=== PATIENT | male | born 1945 | race Two or more races ===

== ENCOUNTER 2021-02-08 07:13 | Outpatient (CLI) | payer OTHER | END 2021-02-08 07:18 | disposition home or self-care (01) | LOC: RX STUDY 07:13 | PROVIDERS: ATTEND Colon & Rectal Surgery | DX: K57.20 Diverticulitis of large intestine with perforation and abscess without bleeding (principal) ==

== ENCOUNTER 2021-06-13 10:45 | Inpatient (IN) | payer OTHER ==
[~2021-06-13] VITALS: Ht 170.2 cm; Wt 77.6 kg
[2021-06-13] MEDS ORDERED: AVALIDE 300-121 EACH PO (15:35)
[2021-06-13] MEDS ORDERED: CARVEDILOL25 MG (15:35)
[2021-06-13] MEDS ORDERED: LIPITOR20 MG PO (15:35)
[2021-06-13] MEDS ORDERED: FENOFIBRATE150 MG PO (15:36)
[2021-06-13] MEDS ORDERED: TRADJENTA5 MG PO (15:36)
[2021-06-13] MEDS ORDERED: NORVASC10 MG PO (15:37)
[2021-06-13] MEDS ORDERED: LISINOPRIL5 MG PO (15:37)
[2021-06-13] MEDS ORDERED: RESTORIL15 MG PO (15:38)
[2021-06-13] MEDS ORDERED: CLONAZEPAM0.5 MG PO (15:38)
[2021-06-15] MEDS ORDERED: DICLOFENAC SOD100 GM (09:55)
[2021-06-15] MEDS ORDERED: GLIPIZIDE5 MG (09:56)
[2021-06-15] MEDS ORDERED: ISOSORBIDE MONO30 M2 (09:56)
[2021-06-15] MEDS ORDERED: FENOFIBRATE160 MG (09:56)
[2021-06-15] MEDS ORDERED: OMEPRAZOLE20 MG (09:57)
[2021-06-15] MEDS ORDERED: ST. JOSEPH ASPI81 M2 (09:57)
[2021-06-15] MEDS ORDERED: SERTRALINE HCL25 MG (09:57)
== END 2021-06-17 13:58 | disposition home or self-care (01) | DRG 330 ==
LOC: SURH 06-15 07:45 → O/R 06-15 07:45 → SURH 06-15 09:00
PROVIDERS: ADMIT Colon & Rectal Surgery; ATTEND Colon & Rectal Surgery
PROC: 0DBP4ZZ Excision of Rectum, Percutaneous Endoscopic Approach (ICD-10-PCS; 2021-06-15)
PROC: 0DBE4ZZ Excision of Large Intestine, Percutaneous Endoscopic Approach (ICD-10-PCS; 2021-06-15)
PROC: 0WQF4ZZ Repair Abdominal Wall, Percutaneous Endoscopic Approach (ICD-10-PCS; 2021-06-15)
PROC: 4A12X4Z Monitoring of Cardiac Electrical Activity, External Approach (ICD-10-PCS; 2021-06-15)
PROC: 0DTN4ZZ Resection of Sigmoid Colon, Percutaneous Endoscopic Approach (ICD-10-PCS; principal; 2021-06-15 09:00)
DX: K57.30 Diverticulosis of large intestine without perforation or abscess without bleeding (principal); K92.1 Melena; Z20.822 Contact with and (suspected) exposure to COVID-19; Z43.3 Encounter for attention to colostomy; I10 Essential (primary) hypertension; E11.9 Type 2 diabetes mellitus without complications; Z79.4 Long term (current) use of insulin; I12.9 Hypertensive chronic kidney disease with stage 1 through stage 4 chronic kidney disease, or unspecified chronic kidney disease; E11.22 Type 2 diabetes mellitus with diabetic chronic kidney disease; N18.30 Chronic kidney disease, stage 3 unspecified